=== PATIENT | male | born 1960 | race Caucasian/White ===

== ENCOUNTER 2017-03-21 09:37 | Day surgery (SDC) | payer OTHER ==
[2017-03-20 11:19] LABS: BASOPHIL % 0.3 % (0-2)
[2017-03-20 11:21] LABS: PLATELET COUNT 436 x10^3mcL (130-400); RED CELL DISTRIBUTION WIDTH 14.6 % (11.5-14.5)
[2017-03-20 11:43] LABS: ALKALINE PHOSPHATASE 59 U/L (46-116); ALT/SGPT 51 U/L (16-63); AST/SGOT 37 U/L (15-37); BILIRUBIN TOTAL 0.24 mg/dL (0.20-1.00); CALCIUM 8.4 mg/dL (8.5-10.1); CARBON DIOXIDE 30.4 mmol/L (21-32); CHLORIDE SERUM 104 mmol/L (98-107); CREATININE SERUM 0.7 mg/dL (0.7-1.3); GFR1 > 60 mL/min; GLUCOSE SERUM 91 mg/dL (74-106); POTASSIUM SERUM 4.3 mmol/L (3.5-5.1); SODIUM SERUM 143 mmol/L (136-145); TOTAL PROTEIN, SERUM 6.5 g/dL (6.4-8.2)
[2017-03-20 11:47] LABS: ALBUMIN 2.7 g/dL (3.4-5.0)
[~2017-03-21] VITALS: Ht 172.7 cm; Wt 80.3 kg
[2017-03-21 10:43] VITALS: BP 128/68
[2017-03-21 16:16] VITALS: BP 126/77
== END 2017-03-21 15:55 | disposition home or self-care (01) ==
LOC: DS 09:37 → OR 12:00 → DS 15:55
PROVIDERS: Surgery
PROC: B5171ZA Fluoroscopy of Left Subclavian Vein using Low Osmolar Contrast, Guidance (ICD-10-PCS; 2017-03-21)
PROC: 05H633Z Insertion of Infusion Device into Left Subclavian Vein, Percutaneous Approach (ICD-10-PCS; principal; 2017-03-21 12:00)
DX: C16.9 Malignant neoplasm of stomach, unspecified (principal)
CPT/HCPCS: A4301; J0690; J1644; J2001; J2250; J2704; J3010; J3490; J7120